=== PATIENT | male | born 1990 | race Caucasian/White ===

== ENCOUNTER 2021-07-22 17:30 | Outpatient (CLI) | payer BC | END 2021-07-22 17:31 | disposition home or self-care (01) | LOC: SLEEPLAB 17:30 | PROVIDERS: ATTEND Internal Medicine Pulmonary Disease | DX: G47.33 Obstructive sleep apnea (adult) (pediatric) (principal); G47.61 Periodic limb movement disorder; R06.83 Snoring; F41.9 Anxiety disorder, unspecified; F32.9 Major depressive disorder, single episode, unspecified; F90.9 Attention-deficit hyperactivity disorder, unspecified type; G47.00 Insomnia, unspecified; F41.1 Generalized anxiety disorder | CPT/HCPCS: 95806 ==

== ENCOUNTER 2022-03-17 19:30 | Outpatient (CLI) | payer BC | END 2022-03-17 19:31 | disposition home or self-care (01) | LOC: SLEEPLAB 19:30 | PROVIDERS: ATTEND Internal Medicine | DX: G47.33 Obstructive sleep apnea (adult) (pediatric) (principal); R06.83 Snoring; G47.10 Hypersomnia, unspecified; E66.9 Obesity, unspecified; Z68.25 Body mass index [BMI] 25.0-25.9, adult | CPT/HCPCS: 95811 ==

== ENCOUNTER 2024-11-01 15:25 | Outpatient (CLI) | payer BC | END 2024-11-01 15:26 | disposition home or self-care (01) | LOC: SCSRAD 15:25 | PROVIDERS: ATTEND Family Medicine | DX: R06.02 Shortness of breath (principal); R52 Pain, unspecified; M62.89 Other specified disorders of muscle | CPT/HCPCS: 71046 ==